=== PATIENT | female | born 1965 | race Caucasian/White ===

== ENCOUNTER 2020-09-28 20:47 | Emergency (ER) | payer MEDICARE, OTHER ==
[~2020-09-28] VITALS: Ht 167.6 cm; Wt 83.5 kg
[~2020-09-28 20:47] MED LIST: ACET325T14 PO; AMAN100C7 PO; CEPH-368; CLON0.1T22 PO; DIAZ10TA4 PO; DIPH25CA61 PO; DIPH25TA65 PO; DULO30CA2 PO; FENT1PAT9 TP; GABA100C PO; HYDR2TAB29 PO; HYDR4TAB48 PO; LISI-167 PO; METH500T97 PO; OXYC-306; OXYC10TA6 PO; POTA20TA91 PO; QUET50TA5 PO; SENN-31 PO; TIZA4CAP2 PO; TIZA4TAB9 PO
--- NOTE | 2020-09-28 22:52 | NUR ---
pt to room from lobby
--- NOTE | 2020-09-28 23:27 | NUR ---
pt had a fall several days ago and now has back pain. Pt thinks she ruptured a disk. VSS. SAXENA at bedside
[2020-09-28] MEDS ORDERED: HYDROmorphone 1 MG/ML, 1ML INJ ONE (23:50)
[2020-09-28] MEDS ORDERED: ONDANSETRON 2MG/ML, 2ML ONE (23:50)
[2020-09-28] MEDS: HYDROmorphone 2 MG/ML, 1ML IVPush PRN (23:53)
--- NOTE | 2020-09-28 23:57 | NUR ---
PIV PLACED AND PT MEDICATED FOR PAIN. PT TO MRI
[2020-09-29] MEDS ORDERED: ONDANSETRON 2MG/ML, 2ML IVPush ONE
[2020-09-29 00:38] LABS: BASOPHILS % (AUTO) 1 % (0-1); EOSINOPHILS % (AUTO) 2 % (1-7); LYMPHOCYTES % (AUTO) 34 % (22-44); MEAN CORPUSCULAR HEMOGLOBIN 33.5 pg (27.0-34.8); MEAN CORPUSCULAR HGB CONC 33.4 g/dL (32.4-35.8); MEAN PLATELET VOLUME 9.8 fL (7.4-10.4); MONOCYTES % (AUTO) 10 % (2-9); NEUTROPHILS % (AUTO) 53 % (42-75); PLATELET COUNT 154 x10^3/uL (130-400); RED BLOOD COUNT 3.32 x10^6/uL (3.82-5.3)
[2020-09-29 00:40] LABS: MD NO
[2020-09-29 00:50] LABS: ALBUMIN 2.7 g/dL (3.4-5.0); ANION GAP 8 mmol/L (5-15); CALCIUM 8.1 mg/dL (8.5-10.1); CHLORIDE 118 mmol/L (98-107); CREATININE 0.67 mg/dL (0.55-1.02)
[2020-09-29] MEDS ORDERED: POTASSIUM CHLORIDE 20 MEQ TAB.ER.PRT ONE (01:17)
[2020-09-29] MEDS ORDERED: HYDROmorphone 1 MG/ML, 1ML INJ ONE (01:21)
[2020-09-29] MEDS: HYDROmorphone 2 MG/ML, 1ML IVPush PRN (01:24)
--- NOTE | 2020-09-29 01:28 | NUR ---
PT REMEDICATED FOR PAIN. VSS. PT GIVEN KDUR AND TOLERATED MEDS WELL. CALL LIGHT IN REACH
[2020-09-29] MEDS ORDERED: POTASSIUM CHLORIDE 20 MEQ TAB.ER.PRT PO ONE (01:30)
[2020-09-29 02:41] VITALS: BP 117/78
--- NOTE | 2020-09-29 02:43 | NUR ---
Covering for break. Pt sleeping wakes up with verbal, VSS. ERP at bedside for update. AIDET provided.
--- NOTE | 2020-09-29 03:16 | NUR ---
Patient given discharge instructions and they have confirmed that they understand the instructions. Patient taken out by wheelchair.
== END 2020-09-29 03:18 | disposition home or self-care (01) ==
LOC: ED 22:59
DX: M48.36 Traumatic spondylopathy, lumbar region (principal); M51.36 Other intervertebral disc degeneration, lumbar region; E87.6 Hypokalemia; Z87.891 Personal history of nicotine dependence; W19.XXXA Unspecified fall, initial encounter; Y93.89 Activity, other specified; Y92.89 Other specified places as the place of occurrence of the external cause; Y99.8 Other external cause status
CPT/HCPCS: 36415; 72148; 80048; 82040; 85025; 96374; 96375; 96376; 99284; J1170; J2405

== ENCOUNTER 2020-10-01 14:47 | Emergency (ER) | payer OTHER ==
[~2020-10-01] VITALS: Ht 167.6 cm; Wt 84.9 kg
[2020-10-01 15:43] LABS: BASOPHILS % (AUTO) 1 % (0-1); EOSINOPHILS % (AUTO) 2 % (1-7); LYMPHOCYTES % (AUTO) 20 % (22-44); MD NO; MEAN CORPUSCULAR HEMOGLOBIN 34.1 pg (27.0-34.8); MEAN CORPUSCULAR HGB CONC 33.4 g/dL (32.4-35.8); MEAN PLATELET VOLUME 9.5 fL (7.4-10.4); MONOCYTES % (AUTO) 9 % (2-9); NEUTROPHILS % (AUTO) 70 % (42-75); PLATELET COUNT 152 x10^3/uL (130-400); RED BLOOD COUNT 3.18 x10^6/uL (3.82-5.3); RED CELL DISTRIBUTION WIDTH 16.7 % (9.6-15.2)
[2020-10-01 15:50] LABS: ALANINE AMINOTRANSFERASE 34 U/L (12-78); ALBUMIN 2.6 g/dL (3.4-5.0); ANION GAP 10 mmol/L (5-15); CALCIUM 7.9 mg/dL (8.5-10.1); CHLORIDE 118 mmol/L (98-107); CREATININE 0.71 mg/dL (0.55-1.02)
[2020-10-01 15:52] LABS: ALKALINE PHOSPHATASE 86 U/L (45-117); BILIRUBIN,TOTAL 0.7 mg/dL (0.2-1.0); TOTAL PROTEIN 5.8 g/dL (6.4-8.2)
[2020-10-01 18:04] LABS: MICROSCOPIC INDICATED
[2020-10-01] MEDS ORDERED: ONDANSETRON 2MG/ML, 2ML ONE (18:15)
[2020-10-01] MEDS ORDERED: HYDROmorphone 1 MG/ML, 1ML INJ ONE ×2 (18:15→20:00)
[2020-10-01] MEDS ORDERED: KETOROLAC 30 MG/1 ML ONE (18:15)
[2020-10-01] MEDS ORDERED: DEXAMETHASONE 4 MG/ML, 1ML ONE (18:15)
[2020-10-01] MEDS ORDERED: ONDANSETRON 2MG/ML, 2ML IVPush ONE (18:30)
[2020-10-01] MEDS ORDERED: DEXAMETHASONE 4 MG/ML, 1ML IVPush ONE (18:30)
[2020-10-01] MEDS ORDERED: KETOROLAC 30 MG/1 ML IVPush ONE (18:30)
[2020-10-01] MEDS ORDERED: HYDROmorphone 1 MG/ML, 1ML INJ IV ONE ×2 (18:30→20:00)
[2020-10-01 18:33] LABS: TROPONIN I < 0.015 ng/mL (0.000-0.045)
[2020-10-01] MEDS ORDERED: POTASSIUM CHLORIDE 20 MEQ TAB.ER.PRT ONE (19:20)
[2020-10-01] MEDS ORDERED: MAGNESIUM SULFATE PMX 2GM/50ML 50 ML ONE (19:20)
[2020-10-01] MEDS ORDERED: MAGNESIUM SULFATE PMX 2GM/50ML 50 ML IV ONE (19:30)
[2020-10-01] MEDS ORDERED: POTASSIUM CHLORIDE 20 MEQ TAB.ER.PRT PO ONE (19:30)
[2020-10-01 21:37] VITALS: BP 114/81
== END 2020-10-01 21:39 | disposition home or self-care (01) ==
LOC: ED 16:25
DX: M51.16 Intervertebral disc disorders with radiculopathy, lumbar region (principal); E87.6 Hypokalemia; E83.42 Hypomagnesemia; R07.89 Other chest pain; G89.29 Other chronic pain; Z87.891 Personal history of nicotine dependence
CPT/HCPCS: 36415; 80053; 81001; 83735; 84484; 85025; 87077; 87086; 87186; 93005; 96365; 96366; 96375; 96376; 99284; J1100; J1170; J1885; J2405; J3475